=== PATIENT | female | born 1975 | race Caucasian/White ===

== ENCOUNTER 2018-08-12 05:39 | Emergency (ER) | payer SELFPAY, BC | END 2018-08-12 14:05 | disposition left against medical advice (07) | LOC: E/R 05:39 | DX: Z53.21 Procedure and treatment not carried out due to patient leaving prior to being seen by health care provider (principal) | CPT/HCPCS: 93005 ==

== ENCOUNTER 2018-10-06 17:29 | Emergency (ER) | payer BC ==
[2018-10-06] MEDS: LIDOCAINE 1% (MDV) 20 ML INJ SC (19:43)
[2018-10-06] MEDS: ACETAMINOPHEN 325 MG TAB PO (19:44)
[2018-10-06] MEDS: DIPHTH/TET/ACEL PERTUSS (ADULT) 0.5 ML VIAL IM* (20:06)
== END 2018-10-06 20:11 | disposition home or self-care (01) ==
LOC: FTE 17:29
DX: S61.412A Laceration without foreign body of left hand, initial encounter (principal); I10 Essential (primary) hypertension; W26.0XXA Contact with knife, initial encounter; Y92.000 Kitchen of unspecified non-institutional (private) residence as the place of occurrence of the external cause; Z23 Encounter for immunization; Z91.040 Latex allergy status
CPT/HCPCS: 12001; 90471; 90715; 99283-25